=== PATIENT | male | born 1975 | race Caucasian/White ===

== ENCOUNTER 2017-09-07 09:08 | Emergency (ER) | payer BC ==
--- NOTE | 2017-09-07 09:53 | ED ---
Dizziness HPI - General Chief Complaint: Dizziness Stated Complaint: Dizziness/having hard time walking Time Seen by Provider: 09/07/17 09:39 Source: patient, RN notes reviewed Mode of arrival: wheelchair Limitations: no limitations - History of Present Illness Initial Comments: This is a 42-year-old male who presents with complaints of dizziness. He states he fell last night he felt very off around midnight and she fell into a closet. No injuries reported he states she's been having is ever since having cold and sore throat symptoms about a month ago. He's been on medications including Antivert and amoxicillin with no relief. He is scheduled to see Dr. Arias apparently neck week he is feeling off and not able to function well which includes driving or other activities. He denies any headache fevers chills nausea vomiting sweats no focal weakness was upper or lower extremities. He has no other complaints of modifying factors. MD Complaint: dizziness, difficulty walking - Related Data Home Medications Medication Instructions Recorded Confirmed Amoxic-Pot Clav 875-125Mg 1 tab PO Q12HR 09/07/17 09/07/17 [Augmentin 875-125] Meclizine [Antivert] 25 mg PO TID PRN 09/07/17 09/07/17 Previous Rx's Medication Instructions Recorded Diazepam [Valium] 10 mg PO HS PRN 3 Days #3 tab 09/07/17 Furosemide [Lasix] 10 mg PO DAILY #7 tab 09/07/17 predniSONE 20 mg PO BID #10 tab 09/07/17 Allergies Allergy/AdvReac Type Severity Reaction Status Date / Time No Known Allergies Allergy Verified 09/07/17 09:51 Review of Systems ROS Statement: Those systems with pertinent positive or pertinent negative responses have been documented in the HPI. ROS Other: All systems not noted in ROS Statement are negative. Past Medical History Past Medical History: No Reported History History of Any Multi-Drug Resistant Organisms: None Reported Past Surgical History: Orthopedic Surgery Past Psychological History: No Psychological Hx Reported Smoking Status: Current every day smoker Past Alcohol Use History: None Reported Past Drug Use History: None Reported General Exam - General Exam Comments Initial Comments: This is a well-developed well-nourished awake alert oriented 3 male Limitations: no limitations General appearance: alert, in no apparent distress Head exam: Present: atraumatic, normocephalic, normal inspection Eye exam: Present: normal appearance, PERRL, EOMI. Absent: scleral icterus, conjunctival injection, periorbital swelling ENT exam: Present: normal exam, mucous membranes moist Neck exam: Present: normal inspection. Absent: tenderness, meningismus, lymphadenopathy Respiratory exam: Present: normal lung sounds bilaterally. Absent: respiratory distress, wheezes, rales, rhonchi, stridor Cardiovascular Exam: Present: regular rate, normal rhythm, normal heart sounds. Absent: systolic murmur, diastolic murmur, rubs, gallop, clicks GI/Abdominal exam: Present: soft, normal bowel sounds. Absent: distended, tenderness, guarding, rebound, rigid Extremities exam: Present: normal inspection, full ROM, normal capillary refill. Absent: tenderness, pedal edema, joint swelling, calf tenderness Back exam: Present: normal inspection Neurological exam: Present: alert, oriented X3, CN II-XII intact Psychiatric exam: Present: normal affect, normal mood Skin exam: Present: warm, dry, intact, normal color. Absent: rash Course Vital Signs 09/07/17 09/07/17 09:18 11:05 Temperature 98 F Pulse Rate 79 75 Respiratory 16 16 Rate Blood Pressure 136/95 157/98 O2 Sat by Pulse 98 98 Oximetry EKG Findings - EKG Results: EKG: interpreted by ANTHONY, sinus rhythm (Sinus rhythm of 71 RI interval 126 QRS duration 100 QT since QTC 380/4:15 minimal also criteria for LVH no acute ST-T wave changes.) Medical Decision Making - Medical Decision Making I did a long discussion with the patient regarding the options. He states he was on a short course of IM steroids which did help briefly. He was offered admission versus stay in hospital he requests being discharged with a different medication regimen. He will be tried on this. He is to keep his follow-up with Dr. Arias 1 week from now as planned. - Lab Data Result diagrams: 09/07/17 09:49 09/07/17 09:49 Lab Results 09/07/17 09/07/17 09/07/17 Range/Units 09:49 09:49 09:49 WBC 14.6 H (3.8-10.6) k/uL RBC 5.59 (4.30-5.90) m/uL Hgb 16.9 (13.0-17.5) gm/dL Hct 49.4 (39.0-53.0) % MCV 88.4 (80.0-100.0) fL MCH 30.2 (25.0-35.0) pg MCHC 34.1 (31.0-37.0) g/dL RDW 13.4 (11.5-15.5) % Plt Count 223 (150-450) k/uL Neutrophils % 69 % Lymphocytes % 19 % Monocytes % 5 % Eosinophils % 4 % Basophils % 0 % Neutrophils # 10.0 H (1.3-7.7) k/uL Lymphocytes # 2.8 (1.0-4.8) k/uL Monocytes # 0.8 (0-1.0) k/uL Eosinophils # 0.7 (0-0.7) k/uL Basophils # 0.0 (0-0.2) k/uL Sodium 140 (137-145) mmol/L Potassium 4.6 (3.5-5.1) mmol/L Chloride 105 (98-107) mmol/L Carbon Dioxide 23 (22-30) mmol/L Anion Gap 12 mmol/L BUN 18 (9-20) mg/dL Creatinine 0.81 (0.66-1.25) mg/dL Est GFR (CKD-EPI)AfAm >90 (>60 ml/min/1.73 sqM) Est GFR (CKD-EPI)NonAf >90 (>60 ml/min/1.73 sqM) Glucose 105 H (74-99) mg/dL Calcium 9.5 (8.4-10.2) mg/dL Magnesium 2.0 (1.6-2.3) mg/dL Total Bilirubin 0.4 (0.2-1.3) mg/dL AST 22 (17-59) U/L ALT 50 (21-72) U/L Alkaline Phosphatase 58 (38-126) U/L Total Creatine Kinase 47 L (55-170) U/L CK-MB (CK-2) 0.7 (0.0-2.4) ng/mL CK-MB (CK-2) Rel Index 1.5 Troponin I <0.012 (0.000-0.034) ng/mL Total Protein 7.4 (6.3-8.2) g/dL Albumin 4.6 (3.5-5.0) g/dL - Radiology Data Radiology results: report reviewed (I did review the imaging and report no acute findings.), image reviewed Disposition Clinical Impression: Benign paroxysmal positional vertigo Disposition: HOME SELF-CARE Condition: Good Instructions: Dizziness (ED) Prescriptions: Diazepam [Valium] 10 mg PO HS PRN 3 Days #3 tab PRN Reason: Vertigo Furosemide [Lasix] 10 mg PO DAILY #7 tab predniSONE 20 mg PO BID #10 tab Is patient prescribed a controlled substance at d/c from ED?: Yes When asked, does pt state using other controlled substances?: No If prescribed controlled substance>3 days was MAPS reviewed?: Prescribed <3 Days Referrals: Nick Rizzo DO [Primary Care Provider] - 1-2 days
[2017-09-07 10:09] LABS: Basophils % (A) 0 %; Eosinophils # (A) 0.7 k/uL (0-0.7); Eosinophils % (A) 4 %; HCT 49.4 % (39.0-53.0); HGB 16.9 gm/dL (13.0-17.5); Lymphocytes # (A) 2.8 k/uL (1.0-4.8); Lymphocytes % (A) 19 %; MCH 30.2 pg (25.0-35.0); MCHC 34.1 g/dL (31.0-37.0); MCV 88.4 fL (80.0-100.0); Mean Platelet Volume 7.4; Monocytes # (A) 0.8 k/uL (0-1.0); Monocytes % (A) 5 %; Neutrophils % (A) 69 %; Platelet Count 223 k/uL (150-450); RBC 5.59 m/uL (4.30-5.90); RDW 13.4 % (11.5-15.5); WBC 14.6 k/uL (3.8-10.6)
[2017-09-07 10:17] LABS: ALT 50 U/L (21-72); AST 22 U/L (17-59); Albumin 4.6 g/dL (3.5-5.0); Alkaline Phosphatase 58 U/L (38-126); Anion Gap 12 mmol/L; Blood Urea Nitrogen 18 mg/dL (9-20); Calcium 9.5 mg/dL (8.4-10.2); Carbon Dioxide 23 mmol/L (22-30); Chloride 105 mmol/L (98-107); Glucose 105 mg/dL (74-99); Potassium 4.6 mmol/L (3.5-5.1); Sodium 140 mmol/L (137-145); Total Bilirubin 0.4 mg/dL (0.2-1.3); Total Protein 7.4 g/dL (6.3-8.2)
--- NOTE | 2017-09-07 10:22 | CT ---
EXAMINATION TYPE: CT brain wo con DATE OF EXAM: 09/07/2017 COMPARISON: None HISTORY: Dizziness CT DLP: 1072.[address] of the brain was performed. The ventricles, basal cisterns and sulci overlying the cerebral convexities demonstrate a normal appe arance. There is no evidence for intracranial hemorrhage or sulcal effacement. No mass effects are seen. Osseous calvarium is intact. If symptoms persist consider MRI as clinically warranted. IMPRESSION: 1. No acute intracranial process is seen at this time.
[2017-09-07 10:32] LABS: Creatine Kinase 47 U/L (55-170)
[2017-09-07 10:45] LABS: Creatine Kinase MB 0.7 ng/mL (0.0-2.4); Troponin I <0.012 ng/mL (0.000-0.034)
--- NOTE | 2017-09-07 10:51 | XR ---
EXAMINATION TYPE: XR chest 2V DATE OF EXAM: 09/07/2017 COMPARISON: NONE HISTORY: Dizziness and persistent cough. History of falls. TECHNIQUE: Frontal and lateral views of the chest are obtained. FINDINGS: There is no focal air space opacity, pleural effusion, or pneumothorax seen. The cardiac silhouette size is upper limits of normal. The osseous structures are intact. IMPRESSION: No acute cardiopulmonary process.
[2017-09-07 13:04] VITALS: BP 146/82; PULSE 78; RESP 18; TEMP 98.2
== END 2017-09-07 12:50 | disposition home or self-care (01) ==
LOC: EC 09:08
DX: H81.10 Benign paroxysmal vertigo, unspecified ear (principal); F17.200 Nicotine dependence, unspecified, uncomplicated
CPT/HCPCS: 36415; 70450; 71046; 80053; 82550; 82553; 83735; 84484; 85025; 93005; 99284

== ENCOUNTER → 2017-09-11 | Outpatient (CLI) | payer BC ==
--- NOTE | 2017-09-11 15:50 | CT ---
EXAMINATION TYPE: CT iac wo con DATE OF EXAM: 09/11/2017 COMPARISON: CT brain 09/07/2017 HISTORY: 42-year-old male Dizziness and giddiness. CT DLP: 142.7 mGycm Automated exposure control for dose reduction was used. TECHNIQUE: Contiguous high-resolution axial scanning of the temporal bones without IV contrast; Jose nal reformatted images obtained. FINDINGS: There is no abnormality of visualized intracranial structures. There is no obvious cerebellopontine angle mass allowing for thin section CT technique. The skull bas e appears normal. The external auditory canals are patent. The middle ear cavities the mastoid air cells are well pneumatized. There is no abnormality of middle ear ossicles. The round and oval windows are normal. There is no abnormality of bony labyrinths. The vestibular and cochlear aqueducts are well visualized. The facial nerve canal is normal bilaterally. The internal auditory canal and meati are symmetrical bilaterally. There is no evidence of fractures. Leftward nasal septal deviation with mild mucosal thickening within the maxillary sinuses and ethmoid air cells. Orbits and globes are intact. Patient is a slightly divergent suggesting underlying strab ismus. Reformatted images confirm above findings. IMPRESSION: 1. No specific abnormality identified on temporal bone CT. 2. Mild chronic paranasal sinus disease. Leftward nasal septal deviation.
== END | disposition home or self-care (01) ==
LOC: RADCTMAIN 14:56
PROVIDERS: ATTEND Family Medicine
DX: H81.43 Vertigo of central origin, bilateral (principal)
CPT/HCPCS: 70480

== ENCOUNTER → 2017-09-13 | Outpatient (CLI) | payer BC ==
--- NOTE | 2017-09-16 22:34 | ENG ---
ELECTRONYSTAGMOGRAM REPORT VIDEO ELECTRONYSTAGMOGRAPHIC REPORT: AGE: 42 ENG INDICATIONS: 42-year-old male with vertigo starting 4 weeks ago with a cold, gradual onset, getting worse. Dizziness is constant. It can be made worse by positional changes such as rolling over right or left, going from a lying to a seated position, bending over, moving the head or when in the car or driving. Denies any hearing loss. There is bilateral tinnitus steady and pressure in both ears. ENG FINDINGS: SPONTANEOUS NYSTAGMUS: SACCADES: Saccades shows intact peak velocities, accuracies and latencies. GAZE TEST: Gaze with fixation shows no nystagmus in any of the directions of gaze including centrally with vision denied. SINUSOIDAL TRACKING: Tracking shows no break-ups. OKN TEST: Optokinetic nystagmus shows no significant asymmetry. MUNA-HALLPIKE TEST: Muna-Hallpike maneuvers shows significant horizontal nystagmus on the right position with only slight dizziness. POSITION TEST: Static position testing shows no nystagmus in any of the positions tested including sitting, supine, head right, head left, right side and left side with eyes open and there is mild horizontal nystagmus plus 6 degrees in the head right position only with vision denied. Other positions with vision denied are negative. CALORIC TEST: Caloric testing shows 8% unilateral right caloric weakness. CONCLUSIONS: IMPRESSION: Unremarkable VNG study. MMODL / IJN: [id number] /
== END | disposition home or self-care (01) ==
LOC: NEUROMAIN 06:33
PROVIDERS: ATTEND Otolaryngology
DX: R42 Dizziness and giddiness (principal)
CPT/HCPCS: 92537; 92540

== ENCOUNTER → 2024-05-29 | Outpatient (CLI) | payer BC ==
--- NOTE | 2024-05-29 15:27 | US ---
EXAMINATION TYPE: US carotid duplex BILAT DATE OF EXAM: 05/29/2024 COMPARISON: NONE CLINICAL INDICATION: Male, 49 years old with history of H53.123 TRANS VISUAL LOSS R03.0 ULYSSES BP R42 DI ZZY; visual changes, tinnitus, dizziness Additional History: R42* Dizziness TECHNIQUE: Grayscale, color Doppler and spectral Doppler evaluation of the bilateral carotid systems and vertebral arteries. Indirect Doppler criteria was utilized. FINDINGS: EXAM MEASUREMENTS: RIGHT: Peak Systolic Velocity (PSV) cm/sec ----- Right CCA: 87.1 ----- Right ICA: 77.6 ----- Right ECA: 98.1 ICA/CCA ratio: 0.89 RIGHT: End Diastole cm/sec ----- Right CCA: 24.7 ----- Right ICA: 24.7 ----- Right ECA: 18.4 LEFT: Peak Systolic Velocity (PSV) cm/sec ----- Left CCA: 91.8 ----- Left ICA: 91.2 ----- Left ECA: 98.1 ICA/CCA ratio: 0.99 LEFT: End Diastole cm/sec ----- Left CCA: 23.0 ----- Left ICA: 49.4 ----- Left ECA: 18.9 VERTEBRALS (direction of flow): Right Vertebral: Antegrade Left Vertebral: Antegrade Rhythm: Normal SIGN CARPENTER NOTES: Mild plaque bilateral bifurcations. No evidence of increased velocities. multiple lymph nodes bilateral neck, largest = 1.2 x 0.6 x 1.1cm on the right and 1.6 x 0.6 x 1.2cm on the le ft. Color Doppler imaging shows patency with blood flow throughout the carotid artery. Spectral waveforms are within normal limits. IMPRESSION: Right: Less than 50% stenosis of the carotid bifurcation. Left: Less than 50% stenosis of the carotid bifurcation. Criteria for Assigning % of Stenosis / Diameter reduction (Estimation based on the indirect measurements of the internal carotid artery velocities (ICA PSV). 1. Normal (no stenosis)=ICA PSV < 180 cm/s: ratio < 2.0: ICA EDV<40 cm/s. 2. Less than 50% stenosis=ICA PSV < 180 cm/s: ratio < 2.0: ICA EDV<40 cm/s. 3. 50 to 69% stenosis=ICA PSV of 180 to 230 cm/s: ration 2.0 ? 4.0: ICA EDV 40-100 cm/s. PSV 125-180 cm/sec and ICA/CCA PSV Ratio ? 2.0 is also consistent with 50-69% stenosis 4. Greater than 70% stenosis to near occlusion= ICA PSV > 230 cm/s: ratio > 4.0: ICA EDV > 100 cm/s. 5. Near occlusion= ICA PSV velocities may be low or undetectable: variable ratio and ICA EDV. 6. Total occlusion=unable to detect flow. [facility], , 05/29/2024 3:25 PM
== END | disposition home or self-care (01) ==
LOC: RADUSWWP 14:30
PROVIDERS: ATTEND Family Medicine
DX: I65.23 Occlusion and stenosis of bilateral carotid arteries (principal); R03.0 Elevated blood-pressure reading, without diagnosis of hypertension; R42 Dizziness and giddiness; H93.19 Tinnitus, unspecified ear; H53.123 Transient visual loss, bilateral
CPT/HCPCS: 93880